=== PATIENT | female | born 1980 | race Caucasian/White ===

== ENCOUNTER 2017-10-21 13:48 | Outpatient (CLI) | payer MEDICAID | END 2017-10-21 13:49 | disposition home or self-care (01) | LOC: BICMAMMO 13:48 | PROVIDERS: ATTEND Family Medicine | DX: N63.20 Unspecified lump in the left breast, unspecified quadrant (principal); R92.8 Other abnormal and inconclusive findings on diagnostic imaging of breast | CPT/HCPCS: 77066; G0204; G0279 ==